=== PATIENT | female | born 1995 | race Caucasian/White ===

== ENCOUNTER → 2019-09-12 | Outpatient (REF) | payer OTHER ==
[2019-09-12 17:00] LABS: BASO % 0.5 % (0.0-1.0); EOS # 0.4 10^3/uL (0.0-0.5); EOS % 5.1 % (0.0-3.0); HEMATOCRIT 33.3 % (36.0-47.0); HEMOGLOBIN 10.9 g/dl (12.0-15.5); LYMPH # 2.8 10^3/uL (1.5-5.0); LYMPH % 36.8 % (24.0-44.0); MEAN CORPUSCULAR HEMOGLOBIN 29.5 pg (27.0-33.0); MEAN CORPUSCULAR HGB CONC 32.7 g/dl (32.0-36.5); MONO # 0.9 10^3/uL (0.0-0.8); MONO % 11.7 % (0.0-5.0); NEUTROPHILS # 3.4 10^3/uL (1.5-8.5); NEUTROPHILS % 45.6 % (36.0-66.0); PLATELET COUNT, AUTOMATED 232 10^3/uL (150-450); WHITE BLOOD COUNT 7.5 10^3/uL (4.0-10.0)
[2019-09-12 17:03] LABS: ALBUMIN 3.7 GM/DL (3.2-5.2); ALT/SGPT 13 U/L (12-78); BILIRUBIN,TOTAL 0.4 MG/DL (0.2-1.0); BLOOD UREA NITROGEN 10 MG/DL (7-18); CALCIUM LEVEL 8.9 MG/DL (8.5-10.1); CARBON DIOXIDE LEVEL 23 MEQ/L (21-32); CHLORIDE LEVEL 107 MEQ/L (98-107); CHOLESTEROL LEVEL 208 MG/DL (<200); CHOLESTEROL RISK RATIO 3.924 (<5); CREATININE FOR GFR 0.58 MG/DL (0.55-1.30); GLOMERULAR FILTRATION RATE > 60.0 (>60); GLUCOSE, FASTING 88 MG/DL (70-100); HDL CHOLESTEROL 53 MG/DL (>40); LDL CHOLESTEROL 120 MG/DL (<100); NON-HDL-C 155 MG/DL; POTASSIUM SERUM 4.2 MEQ/L (3.5-5.1); SODIUM LEVEL 138 MEQ/L (136-145); TRIGLYCERIDES LEVEL 175 MG/DL (<150)
== END ==
LOC: M SFHCCAPE 07:36
PROVIDERS: ATTEND Physician Assistant
DX: F41.1 Generalized anxiety disorder (principal)

== ENCOUNTER → 2019-10-27 | Outpatient (CLI) | payer OTHER ==
--- NOTE | 2019-10-27 10:22 | REP ---
MRI LEFT KNEE WITHOUT CONTRAST: HISTORY: Left knee pain. No known injury. Rule out meniscal tear or other internal derangement. Assess cartilage under kneecap. TECHNIQUE: Axial, coronal, and sagittal imaging planes utilized. Proton density and T2-weighted scans were included with without fat saturation. MRI FINDINGS: Cortical and medullary bone signal intensity are normal. There is no evidence of significant joint effusion. No Gómez's cyst is seen. Patellar and quadriceps tendons have an intact appearance. Anterior and posterior cruciate ligaments are unremarkable. There is no evidence of medial or lateral collateral ligament disruption. A normal fabella is seen posterolaterally. There is a bone island in the lateral femoral condyle. There is no evidence of lateral or medial meniscal tear. No articular cartilage lesion is seen. Patellar articular cartilage is felt to be unremarkable. IMPRESSION: No internal derangement seen. Electronically Signed by Garrison Bland MD 10/27/2019 10:31 A
== END ==
LOC: M RAD 08:57
PROVIDERS: ATTEND Orthopaedic Surgery Sports Medicine
DX: M25.562 Pain in left knee (principal)

== ENCOUNTER → 2020-04-23 | Outpatient (REF) | payer OTHER | LOC: M LAB REF 08:00 → M SFHCCLAY 08:00 | PROVIDERS: ATTEND Physician Assistant | DX: Z12.4 Encounter for screening for malignant neoplasm of cervix (principal) ==

== ENCOUNTER → 2020-05-09 | Outpatient (REF) | payer OTHER ==
[2020-05-10 16:11] LABS: CHLAMYDIA DNA AMPLIFICATION NEGATIVE (NEGATIVE); GC DNA AMPLIFICATION NEGATIVE (NEGATIVE)
== END ==
LOC: M LAB REF 16:00
PROVIDERS: ATTEND Physician Assistant
DX: R10.31 Right lower quadrant pain (principal)

== ENCOUNTER → 2020-05-10 | Outpatient (CLI) | payer OTHER ==
[~2020-05-10] MED LIST: GASTROGRAFIN SOLUTION 30ML (Q9963) As Ordered ONE; ISOVUE-370 76% 100ML VIAL As Ordered ONE
--- NOTE | 2020-05-10 10:35 | REPVR ---
PROCEDURE INFORMATION: Exam: CT Abdomen And Pelvis With Contrast Exam date and time: 05/10/2020 10:03 AM Age: 24 years old Clinical indication: Abdominal pain; Localized; Right lower quadrant (rlq); Additional info: Rlq abd pain TECHNIQUE: Imaging protocol: Computed tomography of the abdomen and pelvis with intravenous contrast. Radiation optimization: All CT scans at this facility use at least one of these dose optimization techniques: automated exposure control; mA and/or kV adjustment per patient size (includes targeted exams where dose is matched to clinical indication); or iterative reconstruction. Contrast material: ISOVUE 370; Contrast volume: 100 ml; Contrast route: INTRAVENOUS (IV); COMPARISON: No relevant prior studies available. FINDINGS: Lungs: There are peripheral nodules at the right lung base including a juxtapleural 3 mm lesion on image 1 in the right middle lobe, a 6 mm lesion in the right lower lobe on image 6 and a 6 mm lesion adjacent to the right diaphragm on image 16. There are irregular peripheral opacities in the left costophrenic angle on axial image 25 laterally measuring 5 mm and medially adjacent to the diaphragm measuring 3 mm. Liver: There are no focal liver lesions present. Gallbladder and bile ducts: The gallbladder is normal. Pancreas: The pancreas is normal. Spleen: The spleen is normal. Adrenals: The adrenal glands are normal. Kidneys and ureters: The kidneys are normal. There is no evidence of hydronephrosis. No calculi are identified. Stomach and bowel: There is mild increase in fecal burden but no fecal rectal distention. Appendix: A normal appendix is identified. Intraperitoneal space: Unremarkable. No free air. No significant fluid collection. Vasculature: Unremarkable. No abdominal aortic aneurysm. Lymph nodes: Unremarkable. No enlarged lymph nodes. Bladder: Unremarkable as visualized. Reproductive: Unremarkable as visualized. Bones/joints: Unremarkable. No acute fracture. Soft tissues: Unremarkable. Other findings: No evidence of an acute abdominal abnormality. IMPRESSION: 1. There are peripheral nodules at the right lung base including a juxtapleural 3 mm lesion on image 1 in the right middle lobe, a 6 mm lesion in the right lower lobe on image 6 and a 6 mm lesion adjacent to the right diaphragm on image 16. There are irregular peripheral opacities in the left costophrenic angle on axial image 25 laterally measuring 5 mm and medially adjacent to the diaphragm measuring 3 mm. 2. No evidence of an acute abdominal abnormality. Electronically signed by: Jorge Vazquez On 05/10/2020 10:35:30 AM
[2020-05-10 14:45] LABS: BASO % 0.3 % (0.0-1.0); EOS # 0.5 10^3/uL (0.0-0.5); EOS % 4.3 % (0.0-3.0); HEMATOCRIT 33.4 % (36.0-47.0); HEMOGLOBIN 10.5 g/dl (12.0-15.5); LYMPH # 2.6 10^3/uL (1.5-5.0); LYMPH % 24.2 % (24.0-44.0); MEAN CORPUSCULAR HEMOGLOBIN 26.5 pg (27.0-33.0); MEAN CORPUSCULAR HGB CONC 31.4 g/dl (32.0-36.5); MEAN CORPUSCULAR VOLUME 84.3 fl (80.0-96.0); MONO # 0.9 10^3/uL (0.0-0.8); MONO % 8.8 % (0.0-5.0); NEUTROPHILS # 6.5 10^3/uL (1.5-8.5); NEUTROPHILS % 61.8 % (36.0-66.0); PLATELET COUNT, AUTOMATED 303 10^3/uL (150-450); RED BLOOD COUNT 3.96 10^6/uL (4.00-5.40); WHITE BLOOD COUNT 10.5 10^3/uL (4.0-10.0)
[2020-05-10 15:15] LABS: HCG, SERUM QUALITATIVE NEGATIVE (NEGATIVE)
[2020-05-10 15:38] LABS: ALBUMIN 3.7 GM/DL (3.2-5.2); ALT/SGPT 20 U/L (12-78); BILIRUBIN,TOTAL 0.8 MG/DL (0.2-1.0); BLOOD UREA NITROGEN 8 MG/DL (7-18); CALCIUM LEVEL 8.9 MG/DL (8.5-10.1); CARBON DIOXIDE LEVEL 26 MEQ/L (21-32); CHLORIDE LEVEL 103 MEQ/L (98-107); CREATININE FOR GFR 0.63 MG/DL (0.55-1.30); FOLATE 12.9 NG/ML (>5.4); GLOMERULAR FILTRATION RATE > 60.0 (>60); GLUCOSE, FASTING 120 MG/DL (70-100); LIPASE 116 U/L (73-393); POTASSIUM SERUM 4.1 MEQ/L (3.5-5.1); SODIUM LEVEL 136 MEQ/L (136-145); TOTAL 25(OH) VITAMIN D 12.1 NG/ML (30.0-100.0); TOTAL PROTEIN 7.7 GM/DL (6.4-8.2); VITAMIN B12 LEVEL 391 PG/ML (247-911)
[2020-05-11 15:15] LABS: FERRITIN 3 NG/ML (8-252); IRON (FE) 63 UG/DL (50-170)
== END ==
LOC: M RAD 07:50
PROVIDERS: ATTEND Physician Assistant
DX: R10.31 Right lower quadrant pain (principal); R53.83 Other fatigue; D64.9 Anemia, unspecified
CPT/HCPCS: 36415; 74177; 80053; 82306; 82607; 82728; 82746; 83540; 83690; 84443; 84703; 85025; Q9963; Q9967

== ENCOUNTER → 2020-05-15 | Outpatient (CLI) | payer OTHER ==
[~2020-05-15] MED LIST changes: -GASTROGRAFIN SOLUTION 30ML (Q9963) As Ordered ONE
--- NOTE | 2020-05-15 11:15 | REPVR ---
PROCEDURE INFORMATION: Exam: CT Chest With Contrast Exam date and time: 05/15/2020 10:14 AM Age: 24 years old Clinical indication: Chest pain; Additional info: Abn CT; Multiple lung nodules TECHNIQUE: Imaging protocol: Computed tomography of the chest with intravenous contrast. 3D rendering (Not supervised by radiologist): MIP and/or 3D reconstructed images were created by the technologist. Radiation optimization: All CT scans at this facility use at least one of these dose optimization techniques: automated exposure control; mA and/or kV adjustment per patient size (includes targeted exams where dose is matched to clinical indication); or iterative reconstruction. Contrast material: ISO 370; Contrast volume: 75 ml; Contrast route: INTRAVENOUS (IV); COMPARISON: No relevant prior studies available. FINDINGS: Lungs: Multiple pulmonary nodules are present bilaterally. This includes nodules in the right lower lobe measuring 6 mm (image 201:61), 5 mm (image 201:71) and 4 mm (image 201:37), 3 mm nodule in the right middle lobe (image 201:59), 4 mm and 5 mm nodules in the left lower lobe (image 201:77), and 4 mm nodule in the left upper lobe (image 201:31). The lungs are otherwise clear. The central airways appear patent. Pleural space: Unremarkable. No pneumothorax. No pleural effusion. Heart: Unremarkable. No cardiomegaly. No pericardial effusion. Aorta: The thoracic aorta is nonaneurysmal. Lymph nodes: Unremarkable. No enlarged lymph nodes. Bones/joints: Unremarkable. No acute fracture. Soft tissues: Unremarkable. IMPRESSION: Multiple bilateral pulmonary nodules measuring up to 6 mm. If patient does not have known cancer, follow up should be based on clinical information because of the low risk of cancer in this age group. (silvio Vernon., Fleischner Society, 2017) Electronically signed by: Doug Lopez On 05/15/2020 11:15:21 AM
== END ==
LOC: M RAD 09:43
PROVIDERS: ATTEND Physician Assistant
DX: D64.9 Anemia, unspecified (principal)
CPT/HCPCS: 71260; Q9967

== ENCOUNTER → 2020-05-16 | Outpatient (REF) | payer OTHER ==
[2020-05-16 12:29] LABS: BASO % 0.6 % (0.0-1.0); EOS # 0.5 10^3/uL (0.0-0.5); EOS % 6.4 % (0.0-3.0); HEMATOCRIT 36.7 % (36.0-47.0); HEMOGLOBIN 11.1 g/dl (12.0-15.5); LYMPH # 2.2 10^3/uL (1.5-5.0); LYMPH % 31.2 % (24.0-44.0); MEAN CORPUSCULAR HEMOGLOBIN 26.1 pg (27.0-33.0); MEAN CORPUSCULAR HGB CONC 30.2 g/dl (32.0-36.5); MEAN CORPUSCULAR VOLUME 86.4 fl (80.0-96.0); MONO # 0.9 10^3/uL (0.0-0.8); NEUTROPHILS # 3.4 10^3/uL (1.5-8.5); NEUTROPHILS % 48.4 % (36.0-66.0); PLATELET COUNT, AUTOMATED 272 10^3/uL (150-450); RED BLOOD COUNT 4.25 10^6/uL (4.00-5.40)
[2020-05-16 13:01] LABS: FERRITIN 3 NG/ML (8-252); IRON (FE) 22 UG/DL (50-170)
== END ==
LOC: M LABDRAWC 10:12
PROVIDERS: ATTEND Physician Assistant
DX: D64.9 Anemia, unspecified (principal)

== ENCOUNTER → 2020-05-24 | Outpatient (CLI) | payer OTHER ==
--- NOTE | 2020-06-08 11:05 | REP ---
PELVIC ULTRASOUND: 05/24/20 CLINICAL: Right lower quadrant abdominal pelvic pain. TECHNIQUE: Transabdominal pelvic ultrasound followed by transvaginal examination for better evaluation of the endometrium with color Doppler evaluation of the ovaries. FINDINGS: The bladder is normal and measures 7.6 x 3.8 x 4.5cm. Normal introverted uterus measures 7.9 x 3.8 x 4.4cm. The endometrial complex measures 7.1mm thickness. A few nabothian cysts are identified. The bilateral ovaries are normal in appearance and vascularity without torsion and demonstrates a few scattered follicles. The right ovary measures 3.0 x 2.5 x 2.3cm (RI 0.53). Left ovary measures 3.4 x 3.1 x 3.5cm (RI 0.56). No pelvic fluid or adnexal abnormality. IMPRESSION: Normal pelvic ultrasound. MTDD
--- NOTE | 2020-06-08 11:07 | REP ---
ABDOMINAL ULTRASOUND: 05/24/20 CLINICAL: Epigastric and right lower quadrant abdominal pain. TECHNIQUE: Real time bianchi scale ultrasound examination with curved array transducer. FINDINGS: The liver, pancreas, and spleen are normal in contour, size and echogenicity without focal hepatic, splenic or pancreatic lesion identified. Splenic index is 342. The gallbladder is normal and without gallstones, wall thickening or pericholecystic fluid. No biliary ductal dilation is appreciated and the common bile duct measures 5mm diameter. The kidneys are relatively normal in appearance without hydronephrosis, nephrolithiasis, or obvious abnormality. The right kidney measures 11.0 x 4.6 x 4.4cm. The left kidney measures 11.5 x 5.4 x 6.1cm. The abdominal aorta measures 1.8cm maximal diameter. No ascites in the visualized abdomen. IMPRESSION: Essentially normal abdominal ultrasound. MTDD
== END ==
LOC: M RAD 09:47
PROVIDERS: ATTEND Physician Assistant
DX: R91.8 Other nonspecific abnormal finding of lung field (principal); R10.31 Right lower quadrant pain; R10.13 Epigastric pain

== ENCOUNTER → 2020-06-21 | Outpatient (REF) | payer OTHER | LOC: M SFHCCLAY 15:56 | PROVIDERS: ATTEND Physician Assistant | DX: J02.9 Acute pharyngitis, unspecified (principal) ==

== ENCOUNTER → 2020-08-23 | Outpatient (REF) | payer OTHER | LOC: M LAB REF 15:59 | PROVIDERS: ATTEND Physician Assistant | DX: Z11.59 Encounter for screening for other viral diseases (principal) ==

== ENCOUNTER → 2020-09-18 | Outpatient (CLI) | payer SELFPAY | LOC: M LABSMTC 13:42 | PROVIDERS: ATTEND Pediatrics | DX: Z20.828 Contact with and (suspected) exposure to other viral communicable diseases (principal) ==

== ENCOUNTER → 2020-11-28 | Outpatient (CLI) | payer OTHER ==
--- NOTE | 2020-11-28 08:10 | REP ---
INDICATION: OTHER NON SPECIFIC ABNORNAL FINDING OF LUNG FIELD. COMPARISON: 05/15/2020. TECHNIQUE: Chest CT without IV contrast. FINDINGS: There are the following lung nodules: Image 28, left upper lobe, 4 mm, unchanged. Image 37, superior segment right lower lobe, 4 mm, unchanged. Image 55, anterior segment right lower lobe, 6 mm, unchanged. Image 65, lateral segment right lower lobe inferiorly, 5 mm, unchanged. Image 73, deep lateral sulcus of the left lower lobe, 5 mm, unchanged. Image 73, deep lateral sulcus of the left lower lobe, 5 mm, unchanged. There are no new lung nodules. There are no enlarging lung nodules. There are no infiltrates or pleural effusions. There is no mediastinal or axillary lymph node enlargement. The study is insensitive for hilar lymph node enlargement in the absence of IV contrast. The unenhanced thoracic aorta is unremarkable. Cardiac size is normal. There is no pericardial effusion. Upper abdomen: The visualized areas of the liver, gallbladder, pancreas and spleen are unremarkable. There is no adrenal mass. The renal upper poles are unremarkable. IMPRESSION: There are multiple lung nodules as described above, all unchanged from the prior study. Given the 18 months time interval from the prior study these are all likely benign. There are no new nodules. There are no enlarging non lung nodules. There is no adenopathy. There are no infiltrates or pleural effusions. The visualized upper abdominal contents are unremarkable. <Electronically signed by Ta Peacock > 11/28/20 0820
== END ==
LOC: M RAD 07:04
PROVIDERS: ATTEND Internal Medicine Pulmonary Disease
DX: R91.8 Other nonspecific abnormal finding of lung field (principal)

== ENCOUNTER → 2021-06-13 | Outpatient (CLI) | payer OTHER | LOC: M RAD 08:46 | PROVIDERS: ATTEND Internal Medicine Pulmonary Disease | DX: R91.8 Other nonspecific abnormal finding of lung field (principal); Z53.8 Procedure and treatment not carried out for other reasons ==

== ENCOUNTER → 2021-11-11 | Outpatient (REF) | payer OTHER ==
[2021-11-11 16:33] LABS: BASO % 0.4 % (0.0-1.0); EOS # 0.5 10^3/uL (0.0-0.5); EOS % 5.4 % (0.0-3.0); HEMATOCRIT 37.4 % (36.0-47.0); HEMOGLOBIN 12.4 g/dl (12.0-15.5); LYMPH # 2.9 10^3/uL (1.5-5.0); LYMPH % 32.7 % (24.0-44.0); MEAN CORPUSCULAR HEMOGLOBIN 31.2 pg (27.0-33.0); MEAN CORPUSCULAR HGB CONC 33.2 g/dl (32.0-36.5); MONO # 1.1 10^3/uL (0.0-0.8); MONO % 12.2 % (2.0-8.0); NEUTROPHILS # 4.3 10^3/uL (1.5-8.5); NEUTROPHILS % 48.3 % (36.0-66.0); PLATELET COUNT, AUTOMATED 284 10^3/uL (150-450); RED BLOOD COUNT 3.98 10^6/uL (4.00-5.40)
[2021-11-11 16:50] LABS: ALBUMIN 3.4 GM/DL (3.2-5.2); ALT/SGPT 39 U/L (12-78); BILIRUBIN,TOTAL 0.3 MG/DL (0.2-1.0); BLOOD UREA NITROGEN 11 MG/DL (7-18); CALCIUM LEVEL 9.2 MG/DL (8.5-10.1); CARBON DIOXIDE LEVEL 24 MEQ/L (21-32); CHLORIDE LEVEL 107 MEQ/L (98-107); CHOLESTEROL LEVEL 219 MG/DL (<200); CHOLESTEROL RISK RATIO 5.918 (<5); FERRITIN 15 NG/ML (8-252); GLOMERULAR FILTRATION RATE > 60.0 (>60); GLUCOSE, FASTING 94 MG/DL (70-100); HDL CHOLESTEROL 37 MG/DL (>40); IRON (FE) 38 UG/DL (50-170); LDL CHOLESTEROL 121 MG/DL (<100); NON-HDL-C 182 MG/DL; POTASSIUM SERUM 4.2 MEQ/L (3.5-5.1); SODIUM LEVEL 138 MEQ/L (136-145); TOTAL PROTEIN 6.5 GM/DL (6.4-8.2); TRIGLYCERIDES LEVEL 304 MG/DL (<150)
== END ==
LOC: M SFHCCAPE 07:54
PROVIDERS: ATTEND Physician Assistant
DX: Z00.00 Encounter for general adult medical examination without abnormal findings (principal); D50.9 Iron deficiency anemia, unspecified

== ENCOUNTER → 2022-07-08 | Outpatient (REF) | payer OTHER ==
[2022-07-08 17:46] LABS: BASO # 0.1 10^3/uL (0.0-0.2); BASO % 0.6 % (0.0-1.0); EOS # 0.8 10^3/uL (0.0-0.5); EOS % 9.2 % (0.0-3.0); HEMATOCRIT 37.8 % (36.0-47.0); HEMOGLOBIN 12.7 g/dl (12.0-15.5); LYMPH # 2.3 10^3/uL (1.5-5.0); LYMPH % 26.2 % (24.0-44.0); MEAN CORPUSCULAR HEMOGLOBIN 30.8 pg (27.0-33.0); MEAN CORPUSCULAR HGB CONC 33.6 g/dl (32.0-36.5); MEAN CORPUSCULAR VOLUME 91.5 fl (80.0-96.0); MONO % 11.4 % (2.0-8.0); NEUTROPHILS # 4.5 10^3/uL (1.5-8.5); NEUTROPHILS % 52.1 % (36.0-66.0); PLATELET COUNT, AUTOMATED 278 10^3/uL (150-450); RED BLOOD COUNT 4.13 10^6/uL (4.00-5.40); WHITE BLOOD COUNT 8.6 10^3/uL (4.0-10.0)
[2022-07-08 18:16] LABS: HCG, SERUM QUALITATIVE POSITIVE (NEGATIVE)
[2022-07-08 18:45] LABS: HCG, SERUM QUANTITATIVE 56154 MIU/ML
== END ==
LOC: M SFHCCAPE 08:30
PROVIDERS: ATTEND Physician Assistant
DX: Z34.90 Encounter for supervision of normal pregnancy, unspecified, unspecified trimester (principal)

== ENCOUNTER 2022-09-26 00:54 | Emergency (ER) | payer OTHER ==
[~2022-09-26] VITALS: Ht 157.5 cm; Wt 85.6 kg
[2022-09-26 01:59] LABS: BASO % 0.3 % (0.0-1.0); EOS # 0.6 10^3/uL (0.0-0.5); EOS % 3.8 % (0.0-3.0); HEMATOCRIT 34.9 % (36.0-47.0); HEMOGLOBIN 11.7 g/dl (12.0-15.5); LYMPH # 2.8 10^3/uL (1.5-5.0); MEAN CORPUSCULAR HEMOGLOBIN 31.3 pg (27.0-33.0); MEAN CORPUSCULAR HGB CONC 33.5 g/dl (32.0-36.5); MEAN CORPUSCULAR VOLUME 93.3 fl (80.0-96.0); MONO # 1.4 10^3/uL (0.0-0.8); MONO % 9.5 % (2.0-8.0); NEUTROPHILS # 9.8 10^3/uL (1.5-8.5); PLATELET COUNT, AUTOMATED 239 10^3/uL (150-450); RED BLOOD COUNT 3.74 10^6/uL (4.00-5.40); WHITE BLOOD COUNT 14.8 10^3/uL (4.0-10.0)
[2022-09-26 02:26] LABS: BLOOD UREA NITROGEN 7 MG/DL (9-23); CALCIUM LEVEL 8.9 MG/DL (8.5-10.1); CARBON DIOXIDE LEVEL 23 MMOL/L (20-31); CHLORIDE LEVEL 106 MMOL/L (98-107); CREATININE FOR GFR 0.33 MG/DL (0.55-1.30); GLOMERULAR FILTRATION RATE > 60.0 (>60); GLUCOSE, FASTING 83 MG/DL (60-100); POTASSIUM SERUM 3.8 MMOL/L (3.5-5.1); SODIUM LEVEL 138 MMOL/L (136-145)
[2022-09-26 02:40] LABS: HCG, SERUM QUANTITATIVE 11714.1 MIU/ML (<4.2)
[2022-09-26 04:49] VITALS: BP 130/83
== END 2022-09-26 04:51 | disposition home or self-care (01) ==
LOC: M ED 00:54 → EDBD 00:54 → M ED 04:51
DX: O26.892 Other specified pregnancy related conditions, second trimester (principal); R10.9 Unspecified abdominal pain; V48.0XXA Car driver injured in noncollision transport accident in nontraffic accident, initial encounter; Z3A.20 20 weeks gestation of pregnancy

== ENCOUNTER 2022-12-12 13:18 | Inpatient (IN) | payer OTHER ==
[~2022-12-12] VITALS: Ht 157.5 cm; Wt 87.8 kg
[2022-12-12] MEDS ORDERED: ONDANSETRON 4MG 2ML VIAL IV PRN (13:55)
[2022-12-12] MEDS ORDERED: LR 1,000 ML IV ONE (13:55)
[2022-12-12] MEDS ORDERED: AMPICILLIN SOD 2 GM in D5W MINI-BAG PLUS 100 ML IV ONE (17:20)
[2022-12-12] MEDS: BETAMETHASONE SOLUSPAN 6MG/ML 5ML VIAL IM SCH ×3 (17:20→21:38)
[2022-12-12] MEDS ORDERED: LIDOCAINE 1% MDV 20ML VIAL INFIL PRN (17:35)
[2022-12-12] MEDS ORDERED: LR 1,000 ML IV SCH (17:35)
[2022-12-12] MEDS ORDERED: OXYTOCIN DRIP 30 UNITS in IV 1 EA IV PRN ×6 (17:35)
[2022-12-12] MEDS ORDERED: OXYTOCIN INJ 10UNITS/ML 1ML VIAL IM PRN (17:35)
[2022-12-12] MEDS ORDERED: TRANEXAMIC ACID INJection 1,000 MG in NS 100 ML IV PRN (17:35)
[2022-12-12] MEDS ORDERED: METHYLERGONOVINE MALEATE 0.2MG/ML 1ML VIAL IM PRN (17:35)
[2022-12-12] MEDS ORDERED: CARBOPROST TROMETHAMINE 250 MCG/ML AMP IM PRN (17:35)
[2022-12-12] MEDS ORDERED: OXYTOCIN 30UNITS IN 0.9% NaCl 500ML IV BAG As Ordered ONE (17:36)
[2022-12-12] MEDS ORDERED: MORPHINE 4 MG/ML 1ML VIAL As Ordered ONE (17:46)
[2022-12-12 17:49] LABS: CORD GAS ABE A -3.9; CORD GAS ABE V -2.5; CORD GAS HCO3 A 23.5 MEQ/L; CORD GAS HCO3 V 23.8 MEQ/L; CORD GAS O2 SAT A 29.1 %; CORD GAS O2 SAT V 42.4 %; CORD GAS PCO2 A 52.5 mmHg; CORD GAS PCO2 V 46.8 mmHg; CORD GAS PH A 7.269 UNITS; CORD GAS PH V 7.325 UNITS; CORD GAS PO2 A 14.9 mmHg; CORD GAS PO2 V 17.7 mmHg; CORD GAS SBC A 19.7 MEQ/L; CORD GAS SBC V 21.1 MEQ/L; CORD GAS TCO2 A 25.1 MEQ/L; CORD GAS TCO2 V 25.3 MEQ/L
[2022-12-12 19:09] VITALS: BP 123/60
[2022-12-12 19:24] VITALS: BP 116/53
[2022-12-12] MEDS ORDERED: MORPHINE 4 MG/ML 1ML VIAL IV ONE (19:40)
[2022-12-12] MEDS ORDERED: PRENTAB9 PO (19:52)
[2022-12-12] MEDS ORDERED: NOXI1TAB PO (19:53)
[2022-12-12 19:56] LABS: TOTAL PROTEIN,RANDOM URINE 24.4 MG/DL (0.0-14.0)
[2022-12-12 19:58] LABS: METHADONE URINE REFLEX NEGATIVE (NEGATIVE); OPIATES URINE REFLEX NEGATIVE (NEGATIVE); PHENCYCLIDINE URINE REFLEX NEGATIVE (NEGATIVE)
[2022-12-12 19:59] LABS: AMPHETAMINES URINE REFLEX NEGATIVE (NEGATIVE); BARBITURATES URINE REFLEX NEGATIVE (NEGATIVE); BENZODIAZEPINES URINE REFLEX NEGATIVE (NEGATIVE); CANNABINOIDS URINE REFLEX NEGATIVE (NEGATIVE); COCAINE METABOLITE URINE REFLE NEGATIVE (NEGATIVE)
[2022-12-12 20:02] LABS: CREATININE,RANDOM URINE 119.1 MG/DL
[2022-12-12 20:09] LABS: HEMATOCRIT 34.3 % (36.0-47.0); HEMOGLOBIN 11.4 g/dl (12.0-15.5); MEAN CORPUSCULAR HEMOGLOBIN 30.2 pg (27.0-33.0); MEAN CORPUSCULAR HGB CONC 33.2 g/dl (32.0-36.5); PLATELET COUNT, AUTOMATED 233 10^3/uL (150-450); RED BLOOD COUNT 3.77 10^6/uL (4.00-5.40); WHITE BLOOD COUNT 21.3 10^3/uL (4.0-10.0)
[2022-12-12 20:45] VITALS: BP 114/55
[2022-12-12 21:30] VITALS: BP 105/55
[2022-12-12] MEDS ORDERED: IBUPROFEN 600MG TAB PO PRN (22:25)
[2022-12-12] MEDS ORDERED: ANUSOL HC CREAM 30GM TOP PRN (22:25)
[2022-12-12] MEDS ORDERED: MOM 30ML SUSPENSION UDC PO PRN (22:25)
[2022-12-12] MEDS ORDERED: DIBUCAINE 1% OINTMENT 30GM TOP PRN (22:25)
[2022-12-12] MEDS ORDERED: DOCUSATE SODIUM 100MG CAPSULE PO PRN (22:25)
[2022-12-12] MEDS ORDERED: METHYLERGONOVINE MALEATE 0.2 MG TAB PO PRN (22:25)
[2022-12-12] MEDS ORDERED: ACETAMINOPHEN 500 MG TAB PO PRN (22:25)
[2022-12-12] MEDS ORDERED: RHOGAM 300MCG (1500IU) INJ IM SCH (22:25)
[2022-12-13 06:00] VITALS: BP 99/57
[2022-12-13 06:56] LABS: HEMATOCRIT 29.5 % (36.0-47.0); HEMOGLOBIN 9.6 g/dl (12.0-15.5); MEAN CORPUSCULAR HGB CONC 32.5 g/dl (32.0-36.5); MEAN CORPUSCULAR VOLUME 92.2 fl (80.0-96.0); PLATELET COUNT, AUTOMATED 208 10^3/uL (150-450); WHITE BLOOD COUNT 17.3 10^3/uL (4.0-10.0)
[2022-12-13] MEDS ORDERED: PRENATAL VITAMINS CHEWABLE TABLET PO SCH (09:00)
[2022-12-14] MEDS ORDERED: MEASLES,MUMPS,RUBELLA VACCINE INJ (MMR-II) SC.IMMUN ONE (09:00)
== END 2022-12-13 12:00 | disposition home or self-care (01) | DRG 560 ==
LOC: M LDO 13:18 → M LDI 17:31 → M OBS 21:30
PROVIDERS: ADMIT Advanced Practice Midwife; ATTEND Advanced Practice Midwife
PROC: 10E0XZZ Delivery of Products of Conception, External Approach (ICD-10-PCS; principal; 2022-12-12)
PROC: 0HQ9XZZ Repair Perineum Skin, External Approach (ICD-10-PCS; 2022-12-12)
DX: O45.93 Premature separation of placenta, unspecified, third trimester (principal); O60.14X0 Preterm labor third trimester with preterm delivery third trimester, not applicable or unspecified; O24.429 Gestational diabetes mellitus in childbirth, unspecified control; Z3A.31 31 weeks gestation of pregnancy; O70.0 First degree perineal laceration during delivery; Z37.0 Single live birth

== ENCOUNTER 2023-04-24 02:32 | Emergency (ER) | payer OTHER ==
[~2023-04-24] VITALS: Ht 157.5 cm; Wt 85.5 kg
[~2023-04-24 02:32] MED LIST changes: -ISOVUE-370 76% 100ML VIAL As Ordered ONE; +NOXI1TAB PO; +PRENTAB9 PO
[2023-04-24] MEDS ORDERED: SERT25TA21 PO (02:46)
[2023-04-24] MEDS ORDERED: NEOSPORIN OINT 0.9 GM PKT TOP ONE (03:05)
[2023-04-24 03:48] VITALS: BP 128/89; TEMP 97.7; O2SAT 98
== END 2023-04-24 03:50 | disposition home or self-care (01) ==
LOC: M ED 02:32
DX: T23.101A Burn of first degree of right hand, unspecified site, initial encounter (principal); X10.1XXA Contact with hot food, initial encounter; Y92.89 Other specified places as the place of occurrence of the external cause; Y93.89 Activity, other specified; Y99.8 Other external cause status; F41.9 Anxiety disorder, unspecified; F32.A Depression, unspecified

== ENCOUNTER → 2023-07-21 | Outpatient (REF) ==
[~2023-07-21] MED LIST changes: +SERT25TA21 PO
== END ==
LOC: M EMP 09:32
PROVIDERS: ATTEND Family Medicine
DX: Z11.52 Encounter for screening for COVID-19 (principal)

== ENCOUNTER 2023-10-13 09:10 | Emergency (ER) | payer OTHER ==
[~2023-10-13] VITALS: Ht 165.1 cm; Wt 89.0 kg
[2023-10-13] MEDS ORDERED: DEBL1TAB (09:26)
[2023-10-13] MEDS: ACETAMINOPHEN 325 MG TAB PO ONE (11:42)
[2023-10-13 13:20] VITALS: BP 125/78; TEMP 98.2; O2SAT 98
== END 2023-10-13 13:15 | disposition home or self-care (01) ==
LOC: M ED 09:10
DX: S09.90XA Unspecified injury of head, initial encounter (principal); Y99.0 Civilian activity done for income or pay; Y92.9 Unspecified place or not applicable; Y93.9 Activity, unspecified; F41.9 Anxiety disorder, unspecified; F32.A Depression, unspecified; Z79.899 Other long term (current) drug therapy

== ENCOUNTER → 2024-04-14 | Outpatient (CLI) | payer OTHER ==
[~2024-04-14] MED LIST changes: +DEBL1TAB
== END ==
LOC: M RAD 16:46
PROVIDERS: ATTEND Student in an Organized Health Care Education/Training Program
DX: M25.572 Pain in left ankle and joints of left foot (principal)

== ENCOUNTER 2024-10-18 23:18 | Emergency (ER) | payer OTHER ==
[~2024-10-18] VITALS: Ht 157.5 cm; Wt 79.9 kg
[2024-10-18 23:20] VITALS: BP 146/88; TEMP 97.1; O2SAT 100
[2024-10-19] MEDS ORDERED: HYDR-3363 PO (01:44)
== END 2024-10-19 01:25 | disposition home or self-care (01) ==
LOC: M ED 23:18
DX: F41.9 Anxiety disorder, unspecified (principal); V49.40XA Driver injured in collision with unspecified motor vehicles in traffic accident, initial encounter; Z79.899 Other long term (current) drug therapy

== ENCOUNTER 2024-12-02 23:21 | Emergency (ER) | payer OTHER ==
[~2024-12-02] VITALS: Ht 157.5 cm; Wt 80.4 kg
[~2024-12-02 23:21] MED LIST changes: +HYDR-3363 PO
[2024-12-03] MEDS ORDERED: NAPR-837 PO (08:14)
[2024-12-03 08:35] VITALS: BP 124/81; TEMP 98.2; O2SAT 98
== END 2024-12-03 08:37 | disposition home or self-care (01) ==
LOC: M ED 23:21
DX: M25.562 Pain in left knee (principal); Z79.899 Other long term (current) drug therapy